=== PATIENT | female | born 1995 | race Caucasian/White ===

== ENCOUNTER 2018-11-04 19:39 | Emergency (ER) | payer SELFPAY ==
[2018-11-04] MEDS ORDERED: Lidocaine 2% Viscous Solution 15 ML Cup PO ONE (20:27)
[2018-11-04] MEDS ORDERED: Benzocaine 20% Topical Spray UD MUCMEM ONE (20:27)
--- NOTE | 2018-11-04 20:28 | EDM.PDOC ---
ED HPI GENERAL MEDICAL PROBLEM - General Chief Complaint: General Stated Complaint: ABSCESS TOOTH Time Seen by Provider: 11/04/18 20:27 Source of Information: Reports: Patient History Limitations: Reports: No Limitations - History of Present Illness INITIAL COMMENTS - FREE TEXT/NARRATIVE: HISTORY AND PHYSICAL: History of present illness: Patient is a 23-year-old female here with complaint of dental abscess. She was seen a dentist today and prescribed penicillin for the infection. She states she has had one dose today but after going to the dentist she developed a pus pocket in the area and increased pain. He denies fevers, chills, nausea, vomiting, diarrhea, abdominal pain. Review of systems: As per history of present illness and below otherwise all systems reviewed and negative. Past medical history: As per history of present illness and as reviewed below otherwise noncontributory. Surgical history: As per history of present illness and as reviewed below otherwise noncontributory. Social history: No reported history of drug or alcohol abuse. Family history: As per history of present illness and as reviewed below otherwise noncontributory. Physical exam: General: Patient sitting comfortably in no acute distress and nontoxic appearing HEENT: Abscess at the gums of the right lower first bicuspid. Atraumatic, normocephalic, pupils reactive, negative for conjunctival pallor or scleral icterus, mucous membranes moist, throat clear, neck supple, nontender, trachea midline. No meningeal signs. Lungs: Clear to auscultation, breath sounds equal bilaterally, chest nontender. Heart: S1S2, regular, negative for clicks, rubs, or overt murmur. Abdomen: Soft, nondistended, nontender. Negative for masses or hepatosplenomegaly. Negative for costovertebral tenderness. Pelvis: Stable nontender. Genitourinary: Deferred. Rectal: Deferred. Extremities: Atraumatic, negative for cords or calf pain. Neurovascular unremarkable. Neuro: Awake, alert, oriented. Cranial nerves II through XII unremarkable. Cerebellum unremarkable. Motor and sensory unremarkable throughout. Exam nonfocal. Notes: Diagnostics: None Therapeutics: Toradol 60mg IM Dental balls Prescriptions: None Impression: Dentalgia, dental abscess Plan: 1. Continue antibiotic and use dental balls as instructed. Alternate Tylenol and Motrin as needed 2. Follow-up with your dentist. 3. Return to ED as needed as discussed Definitive disposition and diagnosis as appropriate pending reevaluation and review of above. Right Lower Tooth/Teeth Pain Score (Numeric/FACES): 8 - Related Data Allergies Allergy/AdvReac Type Severity Reaction Status Date / Time mint Allergy Swelling Verified 11/04/18 20:24 Home Meds: Home Meds Penicillin V Potassium 500 mg PO BID 11/04/18 [History] ED ROS GENERAL - Review of Systems Review Of Systems: ROS reveals no pertinent complaints other than HPI. ED EXAM, GENERAL - Physical Exam Exam: See Below (see dictation) Course - Vital Signs Last Recorded V/S: Last Vital Signs Temp 96.9 F 11/04/18 20:22 Pulse 74 11/04/18 20:22 Resp 18 11/04/18 20:22 BP 118/66 11/04/18 20:22 Pulse Ox 99 11/04/18 20:22 - Orders/Labs/Meds Meds: Medications Discontinued Medications Generic Name Dose Route Start Last Admin Trade Name Freq PRN Reason Stop Dose Admin Benzocaine 2 each 11/04/18 20:27 Hurricaine One 20% MUCMEM 11/04/18 20:28 ONETIME ONE Ketorolac Tromethamine 60 mg 11/04/18 20:33 Toradol IM 11/04/18 20:34 ONETIME ONE Lidocaine HCl 15 ml 11/04/18 20:27 Xylocaine 2% Viscous PO 11/04/18 20:28 ONETIME ONE Departure - Departure Time of Disposition: 20:38 Disposition: Home, Self-Care 01 Condition: Good Clinical Impression: Dental abscess, Dentalgia - Discharge Information Referrals: PCP,None [Primary Care Provider] - Forms: ED Department Discharge Additional Instructions: The following information is given to patients seen in the emergency department who are being discharged to home. This information is to outline your options for follow-up care. We provide all patients seen in our emergency department with a follow-up referral. The need for follow-up, as well as the timing and circumstances, are variable depending upon the specifics of your emergency department visit. If you don't have a primary care physician on staff, we will provide you with a referral. We always advise you to contact your personal physician following an emergency department visit to inform them of the circumstance of the visit and for follow-up with them and/or the need for any referrals to a consulting specialist. The emergency department will also refer you to a specialist when appropriate. This referral assures that you have the opportunity for follow-up care with a specialist. All of these measure are taken in an effort to provide you with optimal care, which includes your follow-up. Under all circumstances we always encourage you to contact your private physician who remains a resource for coordinating your care. When calling for follow-up care, please make the office aware that this follow-up is from your recent emergency room visit. If for any reason you are refused follow-up, please contact the [facility] Emergency Department at and asked to speak to the emergency department charge nurse. 1. Continue antibiotic and use dental balls as instructed. Alternate Tylenol and Motrin as needed 2. Follow-up with your dentist. 3. Return to ED as needed as discussed
[2018-11-04] MEDS ORDERED: Ketorolac 60 MG/2 ML SDV IM ONE (20:33)
== END 2018-11-04 21:04 | disposition home or self-care (01) ==
LOC: MW.ED 19:39
DX: K04.7 Periapical abscess without sinus (principal); Z91.018 Allergy to other foods
CPT/HCPCS: 96372; 99282; A9270; J1885

== ENCOUNTER 2019-11-06 17:00 | Emergency (ER) | payer SELFPAY ==
--- NOTE | 2019-11-06 17:43 | EDM.PDOC ---
ED HPI GENERAL MEDICAL PROBLEM - General Chief Complaint: Back Pain or Injury Stated Complaint: BACK INJURY Time Seen by Provider: 11/06/19 17:33 Source of Information: Reports: Patient History Limitations: Reports: No Limitations - History of Present Illness INITIAL COMMENTS - FREE TEXT/NARRATIVE: HISTORY AND PHYSICAL: History of present illness: Patient is a 24-year-old female presents to the ED with complaint of back pain. Patient states for the past 3 days she is having right lower back pain that is worse with movement. She is taking motrin with little relief of symptoms. She denies injury or trauma. She denies saddle anesthesia, lower extremity weakness , bowel or bladder incontinence, fevers or chills. Review of systems: As per history of present illness and below otherwise all systems reviewed and negative. Past medical history: As per history of present illness and as reviewed below otherwise noncontributory. Surgical history: As per history of present illness and as reviewed below otherwise noncontributory. Social history: No reported history of drug or alcohol abuse. Family history: As per history of present illness and as reviewed below otherwise noncontributory. Physical exam: General: Patient sitting comfortably in no acute distress and nontoxic appearing HEENT: Atraumatic, normocephalic, pupils reactive, negative for conjunctival pallor or scleral icterus, mucous membranes moist, throat clear, neck supple, nontender, trachea midline. No meningeal signs. Lungs: Clear to auscultation, breath sounds equal bilaterally, chest nontender. Heart: S1S2, regular, negative for clicks, rubs, or overt murmur. Abdomen: Soft, nondistended, nontender. Negative for masses or hepatosplenomegaly. Negative for costovertebral tenderness. No rigidity, rebound , guarding. Pelvis: Stable nontender. Genitourinary: Deferred. Rectal: Deferred. Spine: No vertebral tenderness or step offs to palpation. Pain to palpation of right lumbar paraspinal muscles. Extremities: Atraumatic, negative for cords or calf pain. Neurovascular unremarkable. Neuro: Awake, alert, oriented. Cranial nerves II through XII unremarkable. Cerebellum unremarkable. Motor and sensory unremarkable throughout. Exam nonfocal. Notes: Diagnostics: UA, urine hcg Therapeutics: 60mg Toradol IM Prescriptions: Diclofenac Flexeril Impression: Lumbar back pain Plan: Take diclofenac twice daily for pain, you may take tylenol as needed You may take muscle relaxer twice daily as needed, do not take while driving as it may make your drowsy Follow up with primary care provider Return to ED as needed as discussed Definitive disposition and diagnosis as appropriate pending reevaluation and review of above. back Pain Score (Numeric/FACES): 5 - Related Data Allergies Allergy/AdvReac Type Severity Reaction Status Date / Time mint Allergy Swelling Verified 11/04/18 20:24 Home Meds: Home Meds . [No Known Home Meds] 11/06/19 [History] Past Medical History Other Endocrine/Metabolic History: hashimotos - Infectious Disease History Infectious Disease History: Reports: Chicken Pox - Past Surgical History Female Surgical History: Reports: D&C Social & Family History - Family History Family Medical History: Noncontributory - Tobacco Use Smoking Status *Q: Current Every Day Smoker Years of Tobacco use: 11 Packs/Tins Daily: 1 - Recreational Drug Use Recreational Drug Use: No ED ROS GENERAL - Review of Systems Review Of Systems: Comprehensive ROS is negative, except as noted in HPI. ED EXAM,LOWER BACK PAIN/INJURY - Physical Exam Exam: See Below (see dictation) Course - Vital Signs Last Recorded V/S: Last Vital Signs Temp 97.2 F 11/06/19 17:22 Pulse 95 11/06/19 17:22 Resp 16 11/06/19 17:22 BP 129/75 11/06/19 17:22 Pulse Ox 97 11/06/19 17:22 - Orders/Labs/Meds Labs: Laboratory Tests 11/06/19 11/06/19 Range/Units 18:05 18:05 Urine Color YELLOW Urine Appearance CLEAR Urine pH 6.0 (5.0-8.0) Ur Specific [place] 1.025 (1.001-1.035) Urine Protein NEGATIVE (NEGATIVE) mg/dL Urine Glucose (UA) NEGATIVE (NEGATIVE) mg/dL Urine Ketones NEGATIVE (NEGATIVE) mg/dL Urine Occult Blood NEGATIVE (NEGATIVE) Urine Nitrite NEGATIVE (NEGATIVE) Urine Bilirubin NEGATIVE (NEGATIVE) Urine Urobilinogen 0.2 (<2.0) EU/dL Ur Leukocyte Esterase NEGATIVE (NEGATIVE) Urine HCG, Qual NEGATIVE (NEGATIVE) Meds: Medications Discontinued Medications Generic Name Dose Route Start Last Admin Trade Name Freq PRN Reason Stop Dose Admin Ketorolac Tromethamine 60 mg 11/06/19 17:50 11/06/19 18:08 Toradol IM 11/06/19 17:51 60 mg ONETIME ONE Administration Departure - Departure Time of Disposition: 18:28 Disposition: Home, Self-Care 01 Condition: Good Clinical Impression: Lumbar back pain - Discharge Information Referrals: PCP,None [Primary Care Provider] - Forms: ED Department Discharge Additional Instructions: The following information is given to patients seen in the emergency department who are being discharged to home. This information is to outline your options for follow-up care. We provide all patients seen in our emergency department with a follow-up referral. The need for follow-up, as well as the timing and circumstances, are variable depending upon the specifics of your emergency department visit. If you don't have a primary care physician on staff, we will provide you with a referral. We always advise you to contact your personal physician following an emergency department visit to inform them of the circumstance of the visit and for follow-up with them and/or the need for any referrals to a consulting specialist. The emergency department will also refer you to a specialist when appropriate. This referral assures that you have the opportunity for follow-up care with a specialist. All of these measure are taken in an effort to provide you with optimal care, which includes your follow-up. Under all circumstances we always encourage you to contact your private physician who remains a resource for coordinating your care. When calling for follow-up care, please make the office aware that this follow-up is from your recent emergency room visit. If for any reason you are refused follow-up, please contact the Emergency Department at and asked to speak to the emergency department charge nurse. Primary Care [address] [place] [address] [id number] [address] [address] Take diclofenac twice daily for pain, you may take tylenol as needed You may take muscle relaxer twice daily as needed, do not take while driving as it may make your drowsy Follow up with primary care provider Return to ED as needed as discussed Sepsis Event Note - Evaluation Sepsis Screening Result: No Definite Risk - Focused Exam Vital Signs: Vital Signs Temp Pulse Resp BP Pulse Ox 11/06/19 17:22 97.2 F 95 16 129/75 97 Date Exam was Performed: 11/06/19 Time Exam was Performed: 18:29
[2019-11-06] MEDS ORDERED: Ketorolac 60 MG/2 ML SDV IM ONE (17:50)
== END 2019-11-06 18:51 | disposition home or self-care (01) ==
LOC: MW.ED 17:00
DX: M54.5 Low back pain (principal); F17.210 Nicotine dependence, cigarettes, uncomplicated; Z91.018 Allergy to other foods
CPT/HCPCS: 81003; 81025; 96372; 99283; J1885

== ENCOUNTER 2020-04-03 14:17 | Emergency (ER) | payer SELFPAY ==
[2020-04-03] MEDS ORDERED: Sodium Chloride 0.9% 2.5 ML Syringe FLUSH PRN (14:25)
[2020-04-03] MEDS ORDERED: Sodium Chloride 0.9% 10 ML Syringe FLUSH PRN (14:25)
--- NOTE | 2020-04-03 14:36 | EDM.PDOC ---
ED HPI GENERAL MEDICAL PROBLEM - General Stated Complaint: DIZZY Time Seen by Provider: 04/03/20 14:24 Source of Information: Reports: Patient, EMS History Limitations: Reports: No Limitations - History of Present Illness INITIAL COMMENTS - FREE TEXT/NARRATIVE: Presents reporting a syncopal episode. 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 While standing she became slightly dizzy, vision went blurry, legs weak, she saw stars and awoke to find herself sitting on the floor being attended to by her coworkers. The patient recalls that this is the second time this week that this is happened. On the previous occasion she did not seek medical attention. She is otherwise healthy. 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 She also has a history of anxiety without panic and is not treated for it. She smokes a pack of cigarettes a day, denies alcohol use, recreational drug use or vaping. She is currently sexually active, not on control and is 20 days late on her menstrual cycle. She states that she ate cereal at 5:00 this morning and drank quite a bit of coffee this a.m. which is her usual routine. Her blood sugar by EMS was 97. Denies any chest pain, nausea, vomiting, abdominal pain, dysuria, vaginal symptoms, fever or shortness of breath. She did not injure herself in either of her fainting spells. - Related Data Allergies Allergy/AdvReac Type Severity Reaction Status Date / Time mint Allergy Swelling Verified 04/03/20 14:38 Home Meds: Home Meds Levothyroxine [Synthroid] 50 mcg PO ACBREAKFAST #14 tab 04/03/20 [Rx] Past Medical History Other Endocrine/Metabolic History: hashimotos - Infectious Disease History Infectious Disease History: Reports: Chicken Pox - Past Surgical History Female Surgical History: Reports: D&C Social & Family History - Family History Family Medical History: Noncontributory ED ROS GENERAL - Review of Systems Review Of Systems: Comprehensive ROS is negative, except as noted in HPI. - Physical Exam Exam: See Below Exam Limited By: No Limitations General Appearance: Alert, No Apparent Distress Ears: Normal External Exam Nose: Normal Inspection Throat/Mouth: Normal Inspection Head Exam: Atraumatic, Normocephalic Neck: Normal Inspection Respiratory/Chest: No Respiratory Distress, Lungs Clear, Normal Breath Sounds, No Accessory Muscle Use Cardiovascular: Normal Peripheral Pulses, Regular Rate, Rhythm, No Edema, No Murmur GI/Abdominal: Soft, Non-Tender Neuro Exam (Abbreviated): Alert, Oriented, Normal Cognition Extremities: Normal Inspection Psychiatric: Normal Affect, Normal Mood Skin Exam: Warm, Dry, Intact, Normal Color, No Rash Course - Vital Signs Last Recorded V/S: Last Vital Signs Temp 37.0 C 04/03/20 14:34 Pulse 84 04/03/20 14:34 Resp 16 04/03/20 14:34 BP 123/86 04/03/20 14:34 Pulse Ox 99 04/03/20 14:34 - Orders/Labs/Meds Orders: Active Orders 24 hr Category Date Time Status EKG 12 Lead [EKG Documentation Completion] [RC] STAT Care 04/03/20 14:26 Active Sodium Chloride 0.9% [Saline Flush] Med 04/03/20 14:25 Active 10 ml FLUSH ASDIRECTED PRN Sodium Chloride 0.9% [Saline Flush] Med 04/03/20 14:25 Active 2.5 ml FLUSH ASDIRECTED PRN Saline Lock Insert [OM.PC] Stat Oth 04/03/20 14:25 Ordered Medication Orders Sodium Chloride (Saline Flush) 10 ml FLUSH ASDIRECTED PRN PRN Reason: Keep Vein Open Sodium Chloride (Saline Flush) 2.5 ml FLUSH ASDIRECTED PRN PRN Reason: Keep Vein Open Labs: Laboratory Tests 04/03/20 04/03/20 04/03/20 Range/Units 13:55 13:55 13:55 WBC (4.0-11.0) K/uL RBC (4.30-5.90) M/uL Hgb (12.0-16.0) g/dL Hct (36.0-46.0) % MCV (80.0-98.0) fL MCH (27.0-32.0) pg MCHC (31.0-37.0) g/dL RDW Std Deviation (28.0-62.0) fl RDW Coeff of Song (11.0-15.0) % Plt Count (150-400) K/uL MPV (7.40-12.00) fL Neut % (Auto) (48.0-80.0) % Lymph % (Auto) (16.0-40.0) % [place] % (Auto) (0.0-15.0) % Eos % (Auto) (0.0-7.0) % Baso % (Auto) (0.0-1.5) % Neut # (Auto) (1.4-5.7) K/uL Lymph # (Auto) (0.6-2.4) K/uL [place] # (Auto) (0.0-0.8) K/uL Eos # (Auto) (0.0-0.7) K/uL Baso # (Auto) (0.0-0.1) K/uL Nucleated RBC % /100WBC Nucleated RBCs # K/uL Sodium (136-145) mmol/L Potassium (3.5-5.1) mmol/L Chloride (98-107) mmol/L Carbon Dioxide (21.0-32.0) mmol/L BUN (7.0-18.0) mg/dL Creatinine (0.6-1.0) mg/dL Est Cr Clr Drug Dosing Estimated GFR (MDRD) ml/min Glucose (74-106) mg/dL Calcium (8.5-10.1) mg/dL Total Bilirubin (0.2-1.0) mg/dL AST (15-37) IU/L ALT (14-63) IU/L Alkaline Phosphatase (46-116) U/L Troponin I (0.000-0.056) ng/mL Total Protein (6.4-8.2) g/dL Albumin (3.4-5.0) g/dL Globulin (2.6-4.0) g/dL Albumin/Globulin Ratio (0.9-1.6) TSH 3rd Generation (0.36-3.74) uIU/mL Urine Color YELLOW Urine Appearance CLEAR Urine pH 5.5 (5.0-8.0) Ur Specific [place] 1.010 (1.001-1.035) Urine Protein NEGATIVE (NEGATIVE) mg/dL Urine Glucose (UA) NEGATIVE (NEGATIVE) mg/dL Urine Ketones NEGATIVE (NEGATIVE) mg/dL Urine Occult Blood NEGATIVE (NEGATIVE) Urine Nitrite NEGATIVE (NEGATIVE) Urine Bilirubin NEGATIVE (NEGATIVE) Urine Urobilinogen 0.2 (<2.0) EU/dL Ur Leukocyte Esterase NEGATIVE (NEGATIVE) Urine HCG, Qual NEGATIVE (NEGATIVE) Urine Opiates Screen NEGATIVE (NEGATIVE) Ur Oxycodone Screen NEGATIVE (NEGATIVE) Urine Methadone Screen NEGATIVE (NEGATIVE) Ur Barbiturates Screen NEGATIVE (NEGATIVE) Ur Phencyclidine Scrn NEGATIVE (NEGATIVE) Ur Amphetamine Screen NEGATIVE (NEGATIVE) U Methamphetamines Scrn NEGATIVE (NEGATIVE) U Benzodiazepines Scrn NEGATIVE (NEGATIVE) U Cocaine Metab Screen NEGATIVE (NEGATIVE) U Marijuana (THC) Screen POSITIVE (NEGATIVE) 04/03/20 04/03/20 Range/Units 16:25 16:25 WBC 9.06 (4.0-11.0) K/uL RBC 5.01 (4.30-5.90) M/uL Hgb 13.0 (12.0-16.0) g/dL Hct 41.0 (36.0-46.0) % MCV 81.8 (80.0-98.0) fL MCH 25.9 L (27.0-32.0) pg MCHC 31.7 (31.0-37.0) g/dL RDW Std Deviation 43.4 (28.0-62.0) fl RDW Coeff of [place] 15 (11.0-15.0) % Plt Count 306 (150-400) K/uL MPV 10.40 (7.40-12.00) fL Neut % (Auto) 58.4 (48.0-80.0) % Lymph % (Auto) 32.7 (16.0-40.0) % [place] % (Auto) 8.2 (0.0-15.0) % Eos % (Auto) 0.4 (0.0-7.0) % Baso % (Auto) 0.3 (0.0-1.5) % Neut # (Auto) 5.3 (1.4-5.7) K/uL Lymph # (Auto) 3.0 H (0.6-2.4) K/uL [place] # (Auto) 0.7 (0.0-0.8) K/uL Eos # (Auto) 0.0 (0.0-0.7) K/uL Baso # (Auto) 0.0 (0.0-0.1) K/uL Nucleated RBC % 0.0 /100WBC Nucleated RBCs # 0 K/uL Sodium 138 (136-145) mmol/L Potassium 3.6 (3.5-5.1) mmol/L Chloride 104 (98-107) mmol/L Carbon Dioxide 25.0 (21.0-32.0) mmol/L BUN 5 L (7.0-18.0) mg/dL Creatinine 0.7 (0.6-1.0) mg/dL Est Cr Clr Drug Dosing TNP Estimated GFR (MDRD) > 60.0 ml/min Glucose 82 (74-106) mg/dL Calcium 8.8 (8.5-10.1) mg/dL Total Bilirubin 0.2 (0.2-1.0) mg/dL AST 23 (15-37) IU/L ALT 33 (14-63) IU/L Alkaline Phosphatase 112 (46-116) U/L Troponin I < 0.050 (0.000-0.056) ng/mL Total Protein 7.6 (6.4-8.2) g/dL Albumin 3.7 (3.4-5.0) g/dL Globulin 3.9 (2.6-4.0) g/dL Albumin/Globulin Ratio 0.9 (0.9-1.6) TSH 3rd Generation 8.38 H (0.36-3.74) uIU/mL Urine Color Urine Appearance Urine pH (5.0-8.0) Ur Specific [place] (1.001-1.035) Urine Protein (NEGATIVE) mg/dL Urine Glucose (UA) (NEGATIVE) mg/dL Urine Ketones (NEGATIVE) mg/dL Urine Occult Blood (NEGATIVE) Urine Nitrite (NEGATIVE) Urine Bilirubin (NEGATIVE) Urine Urobilinogen (<2.0) EU/dL Ur Leukocyte Esterase (NEGATIVE) Urine HCG, Qual (NEGATIVE) Urine Opiates Screen (NEGATIVE) Ur Oxycodone Screen (NEGATIVE) Urine Methadone Screen (NEGATIVE) Ur Barbiturates Screen (NEGATIVE) Ur Phencyclidine Scrn (NEGATIVE) Ur Amphetamine Screen (NEGATIVE) U Methamphetamines Scrn (NEGATIVE) U Benzodiazepines Scrn (NEGATIVE) U Cocaine Metab Screen (NEGATIVE) U Marijuana (THC) Screen (NEGATIVE) Meds: Medications Generic Name Dose Route Start Last Admin Trade Name Freq PRN Reason Stop Dose Admin Sodium Chloride 10 ml 04/03/20 14:25 Saline Flush FLUSH ASDIRECTED PRN Keep Vein Open Sodium Chloride 2.5 ml 04/03/20 14:25 Saline Flush FLUSH ASDIRECTED PRN Keep Vein Open Departure - Departure Time of Disposition: 17:32 Disposition: Home, Self-Care 01 Condition: Good Clinical Impression: Hypothyroid Qualifiers: Hypothyroidism type: unspecified Qualified Code(s): E03.9 - Hypothyroidism, unspecified - Discharge Information Referrals: PCP,None [Primary Care Provider] - [facility] [Outside] [facility] [Outside] Additional Instructions: The following information is given to patients seen in the emergency department who are being discharged to home. This information is to outline your options for follow-up care. We provide all patients seen in our emergency department with a follow-up referral. The need for follow-up, as well as the timing and circumstances, are variable depending upon the specifics of your emergency department visit. If you don't have a primary care physician on staff, we will provide you with a referral. We always advise you to contact your personal physician following an emergency department visit to inform them of the circumstance of the visit and for follow-up with them and/or the need for any referrals to a consulting specialist. The emergency department will also refer you to a specialist when appropriate. This referral assures that you have the opportunity for follow-up care with a specialist. All of these measure are taken in an effort to provide you with optimal care, which includes your follow-up. Under all circumstances we always encourage you to contact your private physician who remains a resource for coordinating your care. When calling for follow-up care, please make the office aware that this follow-up is from your recent emergency room visit. If for any reason you are refused follow-up, please contact the [facility] Emergency Department at and asked to speak to the emergency department charge nurse. 1. You must follow-up in primary care within the next 1 to 2 weeks. 2. Thyroid medication once daily at least 30 minutes before breakfast with a glass of water and no other foods or medications. 3. Stay well-hydrated and avoid overheating. Sepsis Event Note (ED) - Focused Exam Vital Signs: Vital Signs Temp Pulse Resp BP Pulse Ox 04/03/20 14:34 37.0 C 84 16 123/86 99 - My Orders Last 24 Hours: My Active Orders 04/03/20 14:25 Sodium Chloride 0.9% [Saline Flush] 10 ml FLUSH ASDIRECTED PRN Sodium Chloride 0.9% [Saline Flush] 2.5 ml FLUSH ASDIRECTED PRN Saline Lock Insert [OM.PC] Stat 04/03/20 14:26 EKG 12 Lead [EKG Documentation Completion] [RC] STAT - Assessment/Plan Last 24 Hours: My Active Orders 04/03/20 14:25 Sodium Chloride 0.9% [Saline Flush] 10 ml FLUSH ASDIRECTED PRN Sodium Chloride 0.9% [Saline Flush] 2.5 ml FLUSH ASDIRECTED PRN Saline Lock Insert [OM.PC] Stat 04/03/20 14:26 EKG 12 Lead [EKG Documentation Completion] [RC] STAT
[2020-04-03 17:16] LABS: BLOOD UREA NITROGEN,BUN 5 mg/dL (7.0-18.0); CHLORIDE,CL 104 mmol/L (98-107); GLUCOSE RANDOM 82 mg/dL (74-106); POTASSIUM,K 3.6 mmol/L (3.5-5.1); SODIUM,NA 138 mmol/L (136-145)
== END 2020-04-03 18:00 | disposition home or self-care (01) ==
LOC: MW.ED 14:17
DX: E03.9 Hypothyroidism, unspecified (principal); Z91.018 Allergy to other foods
CPT/HCPCS: 36415; 80053; 80305-QW; 81003; 81025; 84443; 84484; 85025; 93005; 99283; 99284-25

== ENCOUNTER 2020-07-31 14:29 | Emergency (ER) | payer SELFPAY ==
[2020-07-31] MEDS ORDERED: Ondansetron 4 MG/2 ML SDV IVPUSH ONE (15:17)
--- NOTE | 2020-07-31 15:25 | EDM.PDOC ---
ED HPI GENERAL MEDICAL PROBLEM - General Chief Complaint: Abdominal Pain Stated Complaint: VOMITTING/NAUSEA/ BODY ACHES Time Seen by Provider: 07/31/20 14:33 Source of Information: Reports: Patient History Limitations: Reports: No Limitations - History of Present Illness INITIAL COMMENTS - FREE TEXT/NARRATIVE: Patient presents reporting a 2 to 3-day history of body aches, diarrhea and sore throat then today LUQ pain and vomited 6 times during the night. She has had no cough or fever. She states she has not been sexually active for 2 months. She is otherwise healthy except for thyroid disease which is treated with replacement. She smokes cigarettes. 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 ED EXAM, GI/ABD - Physical Exam Exam: See Below Exam Limited By: No Limitations General Appearance: Alert, No Apparent Distress (Playing on her phone) Ears: Normal External Exam Nose: Normal Inspection Throat/Mouth: Normal Inspection Head: Atraumatic, Normocephalic Neck: Normal Inspection Respiratory/Chest: No Respiratory Distress, Lungs Clear, Normal Breath Sounds Cardiovascular: Normal Peripheral Pulses, Regular Rate, Rhythm, No Edema, No Murmur GI/Abdominal Exam: Soft, No Organomegaly, Other (Left upper quadrant tenderness more so over the anterior axillary line 7-8 intercostal space) Extremities: Normal Inspection Neurological: Alert, Oriented Psychiatric: Normal Affect, Normal Mood Skin Exam: Warm, Dry, Intact, Normal Color, No Rash Lymphatic: No Adenopathy Course - Vital Signs Last Recorded V/S: Last Vital Signs Temp 35.7 C L 07/31/20 14:50 Pulse 87 07/31/20 14:50 Resp 16 07/31/20 14:50 BP 115/59 L 07/31/20 17:12 Pulse Ox 99 07/31/20 14:50 - Orders/Labs/Meds Orders: Active Orders 24 hr Category Date Time Status Abdomen Pelvis wo Cont [CT] Stat Exams 07/31/20 15:15 Ordered CORONAVIRUS COVID-19 PCR PHL Stat Lab 07/31/20 15:13 Ordered Labs: Laboratory Tests 07/31/20 07/31/20 07/31/20 Range/Units 15:00 15:00 15:34 WBC 11.88 H (4.0-11.0) K/uL RBC 5.09 (4.30-5.90) M/uL Hgb 13.5 (12.0-16.0) g/dL Hct 42.5 (36.0-46.0) % MCV 83.5 (80.0-98.0) fL MCH 26.5 L (27.0-32.0) pg MCHC 31.8 (31.0-37.0) g/dL RDW Std Deviation 44.1 (28.0-62.0) fl RDW Coeff of Song 14 (11.0-15.0) % Plt Count 296 (150-400) K/uL MPV 10.10 (7.40-12.00) fL Neut % (Auto) 65.0 (48.0-80.0) % Lymph % (Auto) 26.9 (16.0-40.0) % [place] % (Auto) 7.5 (0.0-15.0) % Eos % (Auto) 0.3 (0.0-7.0) % Baso % (Auto) 0.3 (0.0-1.5) % Neut # (Auto) 7.7 H (1.4-5.7) K/uL Lymph # (Auto) 3.2 H (0.6-2.4) K/uL [place] # (Auto) 0.9 H (0.0-0.8) K/uL Eos # (Auto) 0.0 (0.0-0.7) K/uL Baso # (Auto) 0.0 (0.0-0.1) K/uL Nucleated RBC % 0.0 /100WBC Nucleated RBCs # 0 K/uL Sodium (136-145) mmol/L Potassium (3.5-5.1) mmol/L Chloride (98-107) mmol/L Carbon Dioxide (21.0-32.0) mmol/L BUN (7.0-18.0) mg/dL Creatinine (0.6-1.0) mg/dL Est Cr Clr Drug Dosing mL/min Estimated GFR (MDRD) ml/min Glucose (74-106) mg/dL Calcium (8.5-10.1) mg/dL Total Bilirubin (0.2-1.0) mg/dL AST (15-37) IU/L ALT (14-63) IU/L Alkaline Phosphatase (46-116) U/L Total Protein (6.4-8.2) g/dL Albumin (3.4-5.0) g/dL Globulin (2.6-4.0) g/dL Albumin/Globulin Ratio (0.9-1.6) Urine Color YELLOW Urine Appearance CLEAR Urine pH 5.5 (5.0-8.0) Ur Specific [place] >= 1.030 (1.001-1.035) Urine Protein NEGATIVE (NEGATIVE) mg/dL Urine Glucose (UA) NEGATIVE (NEGATIVE) mg/dL Urine Ketones NEGATIVE (NEGATIVE) mg/dL Urine Occult Blood NEGATIVE (NEGATIVE) Urine Nitrite NEGATIVE (NEGATIVE) Urine Bilirubin NEGATIVE (NEGATIVE) Urine Urobilinogen 0.2 (<2.0) EU/dL Ur Leukocyte Esterase NEGATIVE (NEGATIVE) Urine RBC 0-1 (0-2/HPF) Urine WBC 0-1 (0-5/HPF) Ur Epithelial Cells MODERATE (NONE-FEW) Urine Bacteria RARE (NEGATIVE) Urine HCG, Qual NEGATIVE (NEGATIVE) Monoscreen (NEG) SARS CoV-2 RNA Rapid ERIC (NEGATIVE) 07/31/20 07/31/20 07/31/20 Range/Units 15:34 15:34 15:41 WBC (4.0-11.0) K/uL RBC (4.30-5.90) M/uL Hgb (12.0-16.0) g/dL Hct (36.0-46.0) % MCV (80.0-98.0) fL MCH (27.0-32.0) pg MCHC (31.0-37.0) g/dL RDW Std Deviation (28.0-62.0) fl RDW Coeff of Song (11.0-15.0) % Plt Count (150-400) K/uL MPV (7.40-12.00) fL Neut % (Auto) (48.0-80.0) % Lymph % (Auto) (16.0-40.0) % [place] % (Auto) (0.0-15.0) % Eos % (Auto) (0.0-7.0) % Baso % (Auto) (0.0-1.5) % Neut # (Auto) (1.4-5.7) K/uL Lymph # (Auto) (0.6-2.4) K/uL [place] # (Auto) (0.0-0.8) K/uL Eos # (Auto) (0.0-0.7) K/uL Baso # (Auto) (0.0-0.1) K/uL Nucleated RBC % /100WBC Nucleated RBCs # K/uL Sodium 139 (136-145) mmol/L Potassium 3.7 (3.5-5.1) mmol/L Chloride 105 (98-107) mmol/L Carbon Dioxide 23.3 (21.0-32.0) mmol/L BUN 11 (7.0-18.0) mg/dL Creatinine 0.6 (0.6-1.0) mg/dL Est Cr Clr Drug Dosing 149.79 mL/min Estimated GFR (MDRD) > 60.0 ml/min Glucose 76 (74-106) mg/dL Calcium 8.9 (8.5-10.1) mg/dL Total Bilirubin 0.2 (0.2-1.0) mg/dL AST 19 (15-37) IU/L ALT 26 (14-63) IU/L Alkaline Phosphatase 115 (46-116) U/L Total Protein 8.0 (6.4-8.2) g/dL Albumin 3.7 (3.4-5.0) g/dL Globulin 4.3 H (2.6-4.0) g/dL Albumin/Globulin Ratio 0.9 (0.9-1.6) Urine Color Urine Appearance Urine pH (5.0-8.0) Ur Specific [place] (1.001-1.035) Urine Protein (NEGATIVE) mg/dL Urine Glucose (UA) (NEGATIVE) mg/dL Urine Ketones (NEGATIVE) mg/dL Urine Occult Blood (NEGATIVE) Urine Nitrite (NEGATIVE) Urine Bilirubin (NEGATIVE) Urine Urobilinogen (<2.0) EU/dL Ur Leukocyte Esterase (NEGATIVE) Urine RBC (0-2/HPF) Urine WBC (0-5/HPF) Ur Epithelial Cells (NONE-FEW) Urine Bacteria (NEGATIVE) Urine HCG, Qual (NEGATIVE) Monoscreen NEGATIVE (NEG) SARS CoV-2 RNA Rapid ERIC NEGATIVE (NEGATIVE) Meds: Medications Discontinued Medications Generic Name Dose Route Start Last Admin Trade Name Freq PRN Reason Stop Dose Admin Ondansetron HCl 4 mg 07/31/20 15:17 07/31/20 15:30 Zofran IVPUSH 07/31/20 15:18 Not Given ONETIME ONE - Re-Assessments/Exams Free Text/Narrative Re-Assessment/Exam: 07/31/20 17:13 Covid screen is negative. Chemistries and blood work are grossly within normal limits. She does not have a urinary tract infection. She is not . She does not have mono. The patient declines to have a CT scan to evaluate the tenderness in the left upper quadrant. She prefers to go home and follow-up with her primary care provider. She is feeling much better. Departure - Departure Time of Disposition: 17:15 Disposition: Home, Self-Care 01 Condition: Good Clinical Impression: Viral syndrome Nausea & vomiting Qualifiers: Vomiting type: unspecified Vomiting Intractability: non-intractable Qualified Code(s): R11.2 - Nausea with vomiting, unspecified - Discharge Information *PRESCRIPTION DRUG MONITORING PROGRAM REVIEWED*: Not Applicable *COPY OF PRESCRIPTION DRUG MONITORING REPORT IN PATIENT LIBBY: Not Applicable Referrals: Karri Cunningham MD [Primary Care Provider] - Forms: ED Department Discharge Additional Instructions: The following information is given to patients seen in the emergency department who are being discharged to home. This information is to outline your options for follow-up care. We provide all patients seen in our emergency department with a follow-up referral. The need for follow-up, as well as the timing and circumstances, are variable depending upon the specifics of your emergency department visit. If you don't have a primary care physician on staff, we will provide you with a referral. We always advise you to contact your personal physician following an emergency department visit to inform them of the circumstance of the visit and for follow-up with them and/or the need for any referrals to a consulting specialist. The emergency department will also refer you to a specialist when appropriate. This referral assures that you have the opportunity for follow-up care with a specialist. All of these measure are taken in an effort to provide you with optimal care, which includes your follow-up. Under all circumstances we always encourage you to contact your private physician who remains a resource for coordinating your care. When calling for follow-up care, please make the office aware that this follow-up is from your recent emergency room visit. If for any reason you are refused follow-up, please contact the [facility] Emergency Department at and asked to speak to the emergency department charge nurse. 1. Drink plenty of oral fluids and rest. Avoid milk products 24 hours 2. BRAT diet (bananas, rice, applesauce and toast) next 24 hours 3. Follow up with your primary provider for further evaluation. Sepsis Event Note (ED) - Evaluation Sepsis Screening Result: No Definite Risk - Focused Exam Vital Signs: Vital Signs Temp Pulse Resp BP Pulse Ox 07/31/20 17:12 115/59 L 07/31/20 14:50 35.7 C L 87 16 137/79 99 - My Orders Last 24 Hours: My Active Orders 07/31/20 15:13 CORONAVIRUS COVID-19 PCR PHL Stat 07/31/20 15:15 Abdomen Pelvis wo Cont [CT] Stat - Assessment/Plan Last 24 Hours: My Active Orders 07/31/20 15:13 CORONAVIRUS COVID-19 PCR PHL Stat 07/31/20 15:15 Abdomen Pelvis wo Cont [CT] Stat
[2020-07-31 16:04] LABS: BLOOD UREA NITROGEN,BUN 11 mg/dL (7.0-18.0); CARBON DIOXIDE,CO2 23.3 mmol/L (21.0-32.0); CHLORIDE,CL 105 mmol/L (98-107); GLUCOSE RANDOM 76 mg/dL (74-106); POTASSIUM,K 3.7 mmol/L (3.5-5.1); SODIUM,NA 139 mmol/L (136-145)
== END 2020-07-31 17:41 | disposition home or self-care (01) ==
LOC: MW.ED 14:29
DX: B34.9 Viral infection, unspecified (principal); F17.210 Nicotine dependence, cigarettes, uncomplicated; Z20.828 Contact with and (suspected) exposure to other viral communicable diseases; Z91.018 Allergy to other foods
CPT/HCPCS: 36415; 80053; 81001; 81025; 85025; 86308; 99283; 99284; U0002

== ENCOUNTER 2020-10-15 21:42 | Emergency (ER) | payer BC ==
[2020-10-15] MEDS ORDERED: Ketorolac 15 MG/ML SDV IM ONE (22:31)
[2020-10-15] MEDS ORDERED: Carboxymethylcellulose Sodium 0.5% Ophth Soln 0.4 ML UD Box of 30 EYEBOTH STA ×2 (23:11→23:18)
--- NOTE | 2020-10-15 23:19 | EDM.PDOC ---
ED HPI GENERAL MEDICAL PROBLEM - General Chief Complaint: Headache Stated Complaint: VISION PROBLEM, HEADACHE Time Seen by Provider: 10/15/20 21:55 - History of Present Illness INITIAL COMMENTS - FREE TEXT/NARRATIVE: CHIEF COMPLAINT(S): Blurry vision HISTORY OF PRESENT ILLNESS: This is a 25-year-old woman with a past medical history of marijuana use disorder, Scotty's, and prediabetes who comes to the emergency department with a chief complaint of blurry vision. The patient states that she has been having intermittent blurriness of her vision with a going in and out for approximately 6 years. She states that it has worsened over the last month or so. She states that she does have a headache behind her eyes. She denies any excessive tearing. She states that she did have her eyes checked approximately 1 year ago and was only diagnosed with needing reading glasses. She states that she followed up with Dr. Tran who is trying to work out and refer her to neurology. She states that she did have an MRI today but does not know the results. She states that prior to that she did have recurrent syncopal episodes where they did a work-up with EKG and chest x-ray with Dr. Tran. She denies any history of diabetes, glaucoma or family history of glaucoma but there is significant family history of diabetes. She states that she smokes marijuana every day. She is also smokes 1 pack of cigarettes a day. She denies any floaters in her eyes. She states that she does have pain behind her eyes without any numbness, tingling or weakness. She states that she does not have any trouble walking.. She denies any trouble swallowing. REVIEW OF SYSTEMS: Constitutional: Denies fever, chills. Eyes: Denies eye pain Ears, Nose, Mouth, & Throat: Denies earache Cardiovascular: Denies chest pain Respiratory: Denies shortness of breath Gastrointestinal: Denies Nausea, vomiting, diarrhea, hematochezia. Genitourinary: Denies hematuria Skin:Denies a rash MSK: Denies joint pain Neurological: Positive for blurred vision and pain behind her eyes. Denies numbness, tingling, weakness Psychiatric: Denies depression PAST MEDICAL HISTORY: As per history of present illness and as reviewed below otherwise noncontributory. SURGICAL HISTORY: As per history of present illness and as reviewed below otherwise noncontributory. SOCIAL HISTORY: As per history of present illness and as reviewed below otherwise noncontributory. FAMILY HISTORY: As per history of present illness and as reviewed below otherwise noncontributory. EXAMINATION OF ORGAN SYSTEMS/BODY AREAS: Constitutional: Blood pressure was 125/81, heart rate 97, respiratory rate 20 with an oxygen saturation 9 9% on room air. Temperature 36.1 General: Overall well-appearing woman who is in no acute distress Psychiatric: Appropriate mood and affect. Eyes: No scleral icterus or conjunctival erythema pupils are equal round and reactive to light. Extraocular movements intact. No vertical or horizontal nystagmus. No visual field defects. The patient states that everything looks blurry. Her visual acuity is terrible in both eyes at 20/200. ENMT: Moist mucous membranes. No pharyngeal erythema Cardiovascular: Regular, rate, and rhythm. No gallops, murmurs, or rubs. Bilateral upper extremity pulses symmetric and intact. No peripheral edema. No JVD. Respiratory: Lungs clear to auscultation bilaterally. No wheezes, rales, or rhonchi. Gastrointestinal: Soft, non-tender, non-distended. Normoactive bowel sounds Genitourinary: No suprapubic tenderness Musculoskeletal: Normal range of motion. Skin: No lesions or abrasions. Neurological: AOx4. CN grossly intact. Stregth 5/5 in bilateral upper and lower extremity. Sensation is intact bilaterally in upper and lower extremity. Gait appears normal. Finger to nose, heel to roque, rapid alternating movements intact. MEDICAL DECISION MAKING AND COURSE IN THE ED WITH INTERPRETATION/REVIEW OF DIAGNOSTIC STUDIES: This is a 25-year-old woman with a past medical history of marijuana use disorder and Scotty's who comes to the emergency department with 6 years of intermittent blurry vision who has very poor visual acuity who is working with her primary care physician for this. Prior to work-up I did review the patient's chart and the patient did have a brain MRI today which did not reveal any abnormalities. Therefore at this time I did provide the patient with Toradol for pain relief and discussed that I like to do an ultrasound of her eye to evaluate for any retinal detachment or worse hemorrhage. Aeseo-ft-wunl glucose was normal. Bedside bilateral ocular ultrasound revealed no evidence of retinal detachment, hemorrhage with optic nerve measurements of point to 4 mm in 0.23 mm left and right respectively. Indicating no abnormality. After ultrasound I did contact Dr. Dixon ophthalmology and he is able to see her tomorrow in the afternoon. I did discuss this with the patient. She was amenable to discharge at this time and had no further questions. We did provide the patient with refresh drops for the eyes as Dr. Dixon stated dry eyes are likely the cause of her symptoms. DISPOSITION: The patient was discharged home in stable condition. The patient will follow up with Dr. Dixon tomorrow CONDITION: Fair PROCEDURES: None FINAL IMPRESSION(S)/DIAGNOSES: 1. Acute on chronic blurry vision, unknown etiology Chris Ruiz M.D. You were evaluated today on an emergent basis. I did review your MRI report from your primary care physician. It was found to be normal. Given the symptoms that you are experiencing we did do an ultrasound which did not reveal any abnormality. I do recommend you follow-up with ophthalmology. I did contact Dr. Dixon and provided him with your number. He should be contacting you tomorrow for an appointment in the afternoon. If you have any new or worsening symptoms please return to the emergency department. [facility] [address], [address] [place] [address] The patient is informed of any results of their evaluation and diagnostic workup and all questions are answered. They are given discharge instructions and return precautions. The patient is stable for discharge. The patient states they understand and agree with the plan and that they will return if their symptoms get worse or if they have any new concerns. The following information is given to patients seen in the emergency department who are being discharged to home. This information is to outline your options for follow-up care. We provide all patients seen in our emergency department with a follow-up referral. The need for follow-up, as well as the timing and circumstances, are variable depending upon the specifics of your emergency department visit. If you don't have a primary care physician on staff, we will provide you with a referral. We always advise you to contact your personal physician following an emergency department visit to inform them of the circumstance of the visit and for follow-up with them and/or the need for any referrals to a consulting specialist. The emergency department will also refer you to a specialist when appropriate. This referral assures that you have the opportunity for follow-up care with a specialist. All of these measure are taken in an effort to provide you with optimal care, which includes your follow-up. Under all circumstances we always encourage you to contact your private physician who remains a resource for coordinating your care. When calling for follow-up care, please make the office aware that this follow-up is from your recent emergency room visit. If for any reason you are refused follow-up, please contact the [facility] Emergency Department at and asked to speak to the emergency department charge nurse. headache Pain Score (Numeric/FACES): 6 - Related Data Allergies Allergy/AdvReac Type Severity Reaction Status Date / Time mint Allergy Swelling Verified 10/15/20 21:55 Home Meds: Home Meds . 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 x5 Psychiatric History: Reports: Anxiety Other Endocrine/Metabolic History: hashimotos questioned in the past - Infectious Disease History Infectious Disease History: Reports: Chicken Pox - Past Surgical History Female Surgical History: Reports: D&C Social & Family History - Family History Family Medical History: No Pertinent Family History - Tobacco Use Tobacco Use Status *Q: Current Every Day Tobacco User Years of Tobacco use: 12 Packs/Tins Daily: 1 - Recreational Drug Use Recreational Drug Use: Yes Recreational Drug Type: Reports: Marijuana/Hashish ED ROS GENERAL - Review of Systems Review Of Systems: See Below ED EXAM, GENERAL - Physical Exam Exam: See Below Course - Vital Signs Last Recorded V/S: Last Vital Signs Temp 36.9 C 10/15/20 23:34 Pulse 90 10/15/20 23:34 Resp 16 10/15/20 23:34 BP 132/86 10/15/20 23:34 Pulse Ox 97 10/15/20 23:34 - Orders/Labs/Meds Labs: Laboratory Tests 10/15/20 Range/Units 22:42 POC Glucose 81 (60-110) mg/dL Meds: Medications Discontinued Medications Generic Name Dose Route Start Last Admin Trade Name Freq PRN Reason Stop Dose Admin Artificial Tears 1 each 10/15/20 23:18 10/15/20 23:34 Refresh Plus 0.5% EYEBOTH 10/15/20 23:19 Not Given NOW STA Artificial Tears 0 ml 10/15/20 23:30 Liquitears 1.4% Ophth Soln EYEBOTH ASDIRECTED PRN Dry Eyes Ketorolac Tromethamine 15 mg 10/15/20 22:31 10/15/20 22:43 Toradol IM 10/15/20 22:32 15 mg ONETIME ONE Administration Departure - Departure Time of Disposition: 23:18 Disposition: Home, Self-Care 01 Condition: Fair Clinical Impression: Blurry vision, bilateral - Discharge Information *PRESCRIPTION DRUG MONITORING PROGRAM REVIEWED*: No *COPY OF PRESCRIPTION DRUG MONITORING REPORT IN PATIENT LIBBY: No Instructions: Blurred Vision, Adult, Visual Disturbances Referrals: Ej Dixon MD [Ordering Only Provider] - Karri Cunningham MD [Primary Care Provider] - Forms: ED Department Discharge Additional Instructions: You were evaluated today on an emergent basis. I did review your MRI report from your primary care physician. It was found to be normal. Given the symptoms that you are experiencing we did do an ultrasound which did not reveal any abnormality. I do recommend you follow-up with ophthalmology. I did contact Dr. Dixon and provided him with your number. He should be contacting you tomorrow for an appointment in the afternoon. If you have any new or worsening symptoms please return to the emergency department. The patient is informed of any results of their evaluation and diagnostic workup and all questions are answered. They are given discharge instructions and return precautions. The patient is stable for discharge. The patient states they understand and agree with the plan and that they will return if their symptoms get worse or if they have any new concerns. The following information is given to patients seen in the emergency department who are being discharged to home. This information is to outline your options for follow-up care. We provide all patients seen in our emergency department with a follow-up referral. The need for follow-up, as well as the timing and circumstances, are variable depending upon the specifics of your emergency department visit. If you don't have a primary care physician on staff, we will provide you with a referral. We always advise you to contact your personal physician following an emergency department visit to inform them of the circumstance of the visit and for follow-up with them and/or the need for any referrals to a consulting specialist. The emergency department will also refer you to a specialist when appropriate. This referral assures that you have the opportunity for follow-up care with a specialist. All of these measure are taken in an effort to provide you with optimal care, which includes your follow-up. Under all circumstances we always encourage you to contact your private physician who remains a resource for coordinating your care. When calling for follow-up care, please make the office aware that this follow-up is from your recent emergency room visit. If for any reason you are refused follow-up, please contact the [facility] Emergency Department at and asked to speak to the emergency department charge nurse. Sepsis Event Note (ED) - Evaluation Sepsis Screening Result: No Definite Risk - Focused Exam Vital Signs: Vital Signs Temp Pulse Resp BP Pulse Ox 10/15/20 23:34 36.9 C 90 16 132/86 97 10/15/20 21:45 36.1 C 97 20 125/81 99
[2020-10-15] MEDS ORDERED: Polyvinyl Alcohol 1.4% Ophth Soln 15 ML Bottle EYEBOTH PRN (23:30)
--- NOTE | 2020-10-17 12:12 | PCM.SN.2 ---
- Free Text/Narrative Note: I contacted the patient regarding her follow up with Opthalmology. She stated that she did make the appointment and that he stated that there were no abnormalities on examination other that possible needing a new eye glass prescriptions. However, he stated to her that he recommends follow up with a neurologist. She stated that she contacted Dr. Baird office regarding the referral and that she would be hearing back today or tomorrow regarding an appointment. I discussed with her that I would contact her in 48 hours to see if this appointment was made. If it isn't then I stated that we could try and get her an appointment with Dr. Torres. She did express understanding and is to return to ED for any new or worsening symptoms.
== END 2020-10-15 23:36 | disposition home or self-care (01) ==
LOC: MW.ED 21:42
DX: H53.8 Other visual disturbances (principal); F17.210 Nicotine dependence, cigarettes, uncomplicated
CPT/HCPCS: 82962; 96372; 99284; J1885

== ENCOUNTER 2020-10-18 22:54 | Emergency (ER) | payer BC ==
[2020-10-18] MEDS ORDERED: Midazolam 1 MG/ML 2 ML SDV IVPUSH ONE (23:20)
--- NOTE | 2020-10-18 23:36 | EDM.PDOC ---
ED HPI GENERAL MEDICAL PROBLEM - General Chief Complaint: Chest Pain Stated Complaint: ALLERGIC REACTION Time Seen by Provider: 10/18/20 23:30 Source of Information: Reports: Patient History Limitations: Reports: No Limitations - History of Present Illness INITIAL COMMENTS - FREE TEXT/NARRATIVE: Patient is a 25-year-old female who presented today for not feeling well. Patient states she believes she may have had allergic reaction early because of Benadryl. Patient states now she has been having some left-sided chest pain is not made better or worse with any events. Patient denies any shortness of breath fever chills cough. Patient also denies any lower extremity swelling. Middle Chest Pain Score (Numeric/FACES): 6 - Related Data Allergies Allergy/AdvReac Type Severity Reaction Status Date / Time mint Allergy Swelling Verified 10/18/20 23:04 Home Meds: Home Meds . [No Known Home Meds] 10/15/20 [History] Past Medical History PROVER History: Reports: Spontaneous Other PROVER History: miscarriages x5 Psychiatric History: Reports: Anxiety Other Endocrine/Metabolic History: hashimotos questioned in the past - Infectious Disease History Infectious Disease History: Reports: Chicken Pox - Past Surgical History Female Surgical History: Reports: D&C Social & Family History - Family History Family Medical History: No Pertinent Family History - Tobacco Use Tobacco Use Status *Q: Current Every Day Tobacco User Years of Tobacco use: 11 Packs/Tins Daily: 0.8 - Caffeine Use Caffeine Use: Reports: Coffee, Energy Drinks - Recreational Drug Use Recreational Drug Use: Yes Recreational Drug Type: Reports: Marijuana/Hashish Recreational Drug Use Frequency: Daily ED ROS GENERAL - Review of Systems Review Of Systems: See Below Constitutional: Reports: No Symptoms HEENT: Reports: No Symptoms Respiratory: Reports: No Symptoms Cardiovascular: Reports: Chest Pain Endocrine: Reports: No Symptoms GI/Abdominal: Reports: No Symptoms : Reports: No Symptoms Musculoskeletal: Reports: No Symptoms Skin: Reports: No Symptoms Neurological: Reports: No Symptoms Psychiatric: Reports: No Symptoms Hematologic/Lymphatic: Reports: No Symptoms Immunologic: Reports: No Symptoms ED EXAM, GENERAL - Physical Exam Exam: See Below Exam Limited By: No Limitations General Appearance: Alert, WD/WN, No Apparent Distress Respiratory/Chest: No Respiratory Distress, Lungs Clear, Normal Breath Sounds Cardiovascular: Normal Peripheral Pulses, Regular Rate, Rhythm, No Edema GI/Abdominal: Normal Bowel Sounds, Soft, Non-Tender Neurological: Alert, Oriented, CN II-XII Intact, Normal Cognition, Normal Gait #1 Interpretation EKG Date: 10/18/20 Time: 23:10 Rhythm: NSR Rate (Beats/Min): 97 ST-T: Normal Course - Vital Signs Last Recorded V/S: Last Vital Signs Temp 97.6 F 10/18/20 23:00 Pulse 94 10/19/20 00:04 Resp 18 10/19/20 00:04 BP 135/85 10/19/20 00:04 Pulse Ox 96 10/19/20 00:04 - Orders/Labs/Meds Orders: Active Orders 24 hr Category Date Time Status COVID-19/FLU A+B [MOLEC] Stat Lab 10/19/20 01:17 Ordered UA W/ROSHAN RFLX IF INDICATED [URIN] Stat Lab 10/19/20 00:19 Ordered Labs: Laboratory Tests 10/18/20 10/18/20 10/18/20 Range/Units 23:00 23:00 23:00 WBC 14.03 H (4.0-11.0) K/uL RBC 5.03 (4.30-5.90) M/uL Hgb 13.7 (12.0-16.0) g/dL Hct 41.7 (36.0-46.0) % MCV 82.9 (80.0-98.0) fL MCH 27.2 (27.0-32.0) pg MCHC 32.9 (31.0-37.0) g/dL RDW Std Deviation 44.9 (28.0-62.0) fl RDW Coeff of Song 15 (11.0-15.0) % Plt Count 334 (150-400) K/uL MPV 10.80 (7.40-12.00) fL Neut % (Auto) 66.5 (48.0-80.0) % Lymph % (Auto) 23.5 (16.0-40.0) % [place] % (Auto) 9.1 (0.0-15.0) % Eos % (Auto) 0.7 (0.0-7.0) % Baso % (Auto) 0.2 (0.0-1.5) % Neut # (Auto) 9.3 H (1.4-5.7) K/uL Lymph # (Auto) 3.3 H (0.6-2.4) K/uL [place] # (Auto) 1.3 H (0.0-0.8) K/uL Eos # (Auto) 0.1 (0.0-0.7) K/uL Baso # (Auto) 0.0 (0.0-0.1) K/uL Nucleated RBC % 0.0 /100WBC Nucleated RBCs # 0 K/uL Lactate (0.20-2.00) mmol/L Sodium 141 (136-145) mmol/L Potassium 3.3 L (3.5-5.1) mmol/L Chloride 104 (98-107) mmol/L Carbon Dioxide 23.1 (21.0-32.0) mmol/L BUN 14 (7.0-18.0) mg/dL Creatinine 0.8 (0.6-1.0) mg/dL Est Cr Clr Drug Dosing 112.34 mL/min Estimated GFR (MDRD) > 60.0 ml/min Glucose 144 H (74-106) mg/dL Calcium 8.5 (8.5-10.1) mg/dL Total Bilirubin 0.2 (0.2-1.0) mg/dL AST 24 (15-37) IU/L ALT 28 (14-63) IU/L Alkaline Phosphatase 118 H (46-116) U/L Creatine Kinase 100 (26-308) U/L Troponin I < 0.050 (0.000-0.056) ng/mL C-Reactive Protein (0.00-0.90) mg/dL Total Protein 7.9 (6.4-8.2) g/dL Albumin 3.5 (3.4-5.0) g/dL Globulin 4.4 H (2.6-4.0) g/dL Albumin/Globulin Ratio 0.8 L (0.9-1.6) HCG, Qual NEGATIVE (NEG) 10/18/20 10/18/20 Range/Units 23:00 23:00 WBC (4.0-11.0) K/uL RBC (4.30-5.90) M/uL Hgb (12.0-16.0) g/dL Hct (36.0-46.0) % MCV (80.0-98.0) fL MCH (27.0-32.0) pg MCHC (31.0-37.0) g/dL RDW Std Deviation (28.0-62.0) fl RDW Coeff of Song (11.0-15.0) % Plt Count (150-400) K/uL MPV (7.40-12.00) fL Neut % (Auto) (48.0-80.0) % Lymph % (Auto) (16.0-40.0) % [place] % (Auto) (0.0-15.0) % Eos % (Auto) (0.0-7.0) % Baso % (Auto) (0.0-1.5) % Neut # (Auto) (1.4-5.7) K/uL Lymph # (Auto) (0.6-2.4) K/uL [place] # (Auto) (0.0-0.8) K/uL Eos # (Auto) (0.0-0.7) K/uL Baso # (Auto) (0.0-0.1) K/uL Nucleated RBC % /100WBC Nucleated RBCs # K/uL Lactate 2.1 H* (0.20-2.00) mmol/L Sodium (136-145) mmol/L Potassium (3.5-5.1) mmol/L Chloride (98-107) mmol/L Carbon Dioxide (21.0-32.0) mmol/L BUN (7.0-18.0) mg/dL Creatinine (0.6-1.0) mg/dL Est Cr Clr Drug Dosing mL/min Estimated GFR (MDRD) ml/min Glucose (74-106) mg/dL Calcium (8.5-10.1) mg/dL Total Bilirubin (0.2-1.0) mg/dL AST (15-37) IU/L ALT (14-63) IU/L Alkaline Phosphatase (46-116) U/L Creatine Kinase (26-308) U/L Troponin I (0.000-0.056) ng/mL C-Reactive Protein 1.80 H (0.00-0.90) mg/dL Total Protein (6.4-8.2) g/dL Albumin (3.4-5.0) g/dL Globulin (2.6-4.0) g/dL Albumin/Globulin Ratio (0.9-1.6) HCG, Qual (NEG) Meds: Medications Discontinued Medications Generic Name Dose Route Start Last Admin Trade Name Presley PRN Reason Stop Dose Admin Ketorolac Tromethamine 30 mg 10/19/20 00:42 10/19/20 01:26 Toradol IVPUSH 10/19/20 00:43 30 mg ONETIME ONE Administration Midazolam HCl 1 mg 10/18/20 23:20 10/18/20 23:38 Versed 1 Mg/Ml IVPUSH 10/18/20 23:21 1 mg ONETIME ONE Administration - Re-Assessments/Exams Free Text/Narrative Re-Assessment/Exam: 10/19/20 01:47 Patient EKG labs reviewed. Patient does have a white count small lactate. We are going to do a Covid and flu swab patient refused. Patient that she feels better. Patient will be discharged home given strict return precautions. Departure - Departure Time of Disposition: 01:47 Disposition: Home, Self-Care 01 Condition: Good Clinical Impression: Viral illness Instructions: Nonspecific Chest Pain, Adult, [id number], Viral Illness, Adult Referrals: Karri Cunningham MD [Primary Care Provider] - Forms: ED Department Discharge Additional Instructions: The following information is given to patients seen in the emergency department who are being discharged to home. This information is to outline your options for follow-up care. We provide all patients seen in our emergency department with a follow-up referral. The need for follow-up, as well as the timing and circumstances, are variable depending upon the specifics of your emergency department visit. If you don't have a primary care physician on staff, we will provide you with a referral. We always advise you to contact your personal physician following an emergency department visit to inform them of the circumstance of the visit and for follow-up with them and/or the need for any referrals to a consulting specialist. The emergency department will also refer you to a specialist when appropriate. This referral assures that you have the opportunity for follow-up care with a sp ecialist. All of these measure are taken in an effort to provide you with optimal care, which includes your follow-up. Under all circumstances we always encourage you to contact your private physicia n who remains a resource for coordinating your care. When calling for follow-up care, please make the office aware that this follow-up is from your recent emergency room visit. If for any reason you are refused follow-up, please contact the [facility] Emergency Department at and asked to speak to the emergency department charge nurse. Please follow up with your primary care physician. If you do not have a primary care physician, see below: [facility] [address] [place] [id number] My [facility] [address] [place] [address] Please follow-up with your primary care physician. If you have any other concerning signs or symptoms please return to the ED. Sepsis Event Note (ED) - Evaluation Sepsis Screening Result: No Definite Risk - Focused Exam Vital Signs: Vital Signs Temp Pulse Resp BP Pulse Ox 10/19/20 00:04 94 18 135/85 96 10/18/20 23:00 97.6 F 123 H 16 142/80 H 98 - My Orders Last 24 Hours: My Active Orders 10/19/20 00:19 UA W/ROSHAN RFLX IF INDICATED [URIN] Stat 10/19/20 01:17 COVID-19/FLU A+B [MOLEC] Stat - Assessment/Plan Last 24 Hours: My Active Orders 10/19/20 00:19 UA W/ROSHAN RFLX IF INDICATED [URIN] Stat 10/19/20 01:17 COVID-19/FLU A+B [MOLEC] Stat Assessment:: Patient is a 25-year-old female presents today for chest pain. Patient EKG is sinus rhythm no ST changes. Will obtain x-ray labs and reassess.
[2020-10-18 23:39] LABS: BLOOD UREA NITROGEN,BUN 14 mg/dL (7.0-18.0); CARBON DIOXIDE,CO2 23.1 mmol/L (21.0-32.0); CHLORIDE,CL 104 mmol/L (98-107); GLUCOSE RANDOM 144 mg/dL (74-106); POTASSIUM,K 3.3 mmol/L (3.5-5.1); SODIUM,NA 141 mmol/L (136-145)
--- NOTE | 2020-10-19 00:20 | CR ---
INDICATION: Chest pain COMPARISON: None available. FINDINGS: An erect single view of the chest was obtained at 23 59 hours. The lungs are clear. No focal or diffuse infiltrates are present. No sign of pneumothorax or rib abnormality to correlate with history of chest pain. The heart is normal in size. The mediastinum is normal in appearance. The osseous structures are normal in appearance for the patient`s age. IMPRESSION: Normal chest single view. Dictated by Carlton Stewart MD @ Oct 19 2020 12:18AM Signed by Dr. Carlton Stewart @ Oct 19 2020 12:19AM
[2020-10-19] MEDS ORDERED: Ketorolac 30 MG/ML SDV IVPUSH ONE (00:42)
--- NOTE | 2020-10-22 11:33 | PCM.SN.2 ---
- Free Text/Narrative Note: Contacted patient regarding neurology follow up. Patient stated that in the interim she had an allergic reaction and came to the ED. She stated that she was started on a steroid and since then her vision has improved. She stated that initially they had her scheduled for Neurology in December, however they were able to get her in today. I encouraged her to keep that appointment and to return to the ED with any new or worsening symptoms.
== END 2020-10-19 01:54 | disposition home or self-care (01) ==
LOC: MW.ED 22:54
DX: B34.9 Viral infection, unspecified (principal); Z91.048 Other nonmedicinal substance allergy status; Z72.0 Tobacco use
CPT/HCPCS: 36415; 71045; 80053; 82550; 83605; 84484; 84703; 85025; 86140; 93005; 96374; 99285; J1885; J2250; 93010; 99283